=== PATIENT | female | born 1995 | race Caucasian/White ===

== ENCOUNTER 2019-06-11 23:44 | Emergency (ER) | payer OTHER ==
[~2019-06-11] VITALS: Ht 162.6 cm; Wt 55.8 kg
== END 2019-06-12 01:16 | disposition home or self-care (01) ==
LOC: ED 23:44
DX: S00.83XA Contusion of other part of head, initial encounter (principal); F10.129 Alcohol abuse with intoxication, unspecified; F17.200 Nicotine dependence, unspecified, uncomplicated; Z91.018 Allergy to other foods; W01.198A Fall on same level from slipping, tripping and stumbling with subsequent striking against other object, initial encounter
CPT/HCPCS: 70450; 70486; 99283-25

== ENCOUNTER 2024-06-23 21:04 | Emergency (ER) | payer OTHER ==
[~2024-06-23] VITALS: Ht 162.6 cm; Wt 55.0 kg
[~2024-06-23 21:04] MED LIST: ESCITALOPRAM OX10 MG PO; GUANFACINE HCL E2 MG PO; IBU-200200 MG PO; MIRENA1 EAC3 MISC; OMEPRAZOLE20 MG PO; SUCRALFATE1 GM PO; TYLENOL EXTRA500 MG; TYLENOL EXTRA500 MG PO; ZYRTEC10 MG PO
[2024-06-23] MEDS ORDERED: IBUPROFEN 800 MG TAB PO ONE (22:00)
[2024-06-23 22:13] VITALS: BP 141/98
== END 2024-06-23 22:08 | disposition home or self-care (01) ==
LOC: ED 21:04
DX: S92.511A Displaced fracture of proximal phalanx of right lesser toe(s), initial encounter for closed fracture (principal); W22.8XXA Striking against or struck by other objects, initial encounter; F17.200 Nicotine dependence, unspecified, uncomplicated; Z88.1 Allergy status to other antibiotic agents; Z88.8 Allergy status to other drugs, medicaments and biological substances; Z91.018 Allergy to other foods; Z79.899 Other long term (current) drug therapy
CPT/HCPCS: 73630; 99283; A9270